=== PATIENT | female | born 1965 | race Caucasian/White ===

== ENCOUNTER 2022-12-04 10:03 | Emergency (ER) | payer OTHER, SELFPAY ==
--- NOTE | 2022-12-04 10:10 | ED.EYEPROB ---
HPI - Eye Problem General Chief complaint: Eye Problems Stated complaint: rt eye pain and irritation Time Seen by Provider: 12/04/22 10:09 Source: patient Mode of arrival: ambulatory Limitations: no limitations History of Present Illness HPI Narrative: Patient is a 57-year-old female that presents with 1 week of periorbital redness and swelling to right eye. Patient states the swelling goes up and down but the last 3 days it has been consistently swollen and red. Patient is from [place] and just passing through. Patient has tried eye drops with no relief. Reports areas tender to touch. Denies any vision changes, eye discharge or being matted shut in the mornings. Denies any fever, chills. Related Data Home Medications Medication Instructions Recorded Confirmed abemaciclib 150 mg tablet 150 mg PO DAILY 12/04/22 12/04/22 (Verzenio) anastrozole 1 mg tablet 1 mg PO DAILY 12/04/22 12/04/22 atorvastatin 40 mg tablet 40 mg PO DAILY 12/04/22 12/04/22 carvedilol 6.25 mg tablet 6.25 mg PO DAILY 12/04/22 12/04/22 gabapentin 300 mg capsule 300 mg PO HS 12/04/22 12/04/22 glyburide 5 mg tablet 5 mg PO DAILY 12/04/22 12/04/22 insulin glargine 100 unit/mL (3 20 unit subcut HS 12/04/22 12/04/22 mL) subcutaneous pen (Basaglar KwikPen U-100 Insulin) metformin 500 mg tablet 500 mg PO BID 12/04/22 12/04/22 sitagliptin phosphate 50 mg tablet 50 mg PO DAILY 12/04/22 12/04/22 (Januvia) valsartan 160 mg tablet 160 mg PO DAILY 12/04/22 12/04/22 Allergies Allergy/AdvReac Type Severity Reaction Status Date / Time No Known Allergies Allergy Verified 12/04/22 10:21 Review of Systems Review of Systems: All systems reviewed & are unremarkable except as noted in HPI and below Constitutional: Constitutional: Denies body ache(s), Denies fever(s), Denies headache(s), Denies malaise and Denies weakness Eyes: Eyes: Denies blurry vision, Denies eye discharge, Reports irritation, Denies itchy eyes, Denies loss of vision and Reports eye pain ENT: Denies otalgia, Denies headache(s), Denies nasal discharge, Denies sinus pain and Denies sore throat Cardiovascular: Cardiovascular: Denies chest pain, Denies irregular heart rhythm and Denies dyspnea Respiratory: Respiratory: Denies dyspnea Gastrointestinal: Gastrointestinal: Denies abdominal pain, Denies diarrhea, Denies nausea and Denies vomiting Musculoskeletal: Musculoskeletal: Denies back pain, Denies myalgias and Denies arthralgias Integumentary/Breasts: Skin/Breast: Denies pruritus and Denies rash Neurologic: Denies headache(s), Denies loss of vision and Denies weakness Psychiatric: Psychiatric: Reports no additional psychiatric complaints Allergic/Immunologic: Allergic/Immunologic: Reports itchy eyes PMFSH Comments At time of signature, agree with nursing past medical, surgical, social and family history. There is no relevant family history pertinent to the presenting complaint. Exam Const: General: cooperative, healthy appearing, comfortable, no acute distress and well nourished Nutritional Appearance: well nourished Orientation/consciousness: patient oriented x3 Limitations: no limitations HENMT: Head: normal to inspection, normocephalic and atraumatic Ears: external ears normal Face/Nose/Sinus: Normal external nose present, normal facial exam and face symmetric Face and sinus: normal facial exam and face symmetric Mouth: Yes lip normal Eyes: General: appearance normal, both eyes and all related structures Visual Mckoy: normal visual mckoy by confrontation Alignment and Position: alignment normal and position normal Periorbital: periorbital findings abnormal right periorbital swelling, periorbital tenderness and periorbital erythema; no ecchymosis and no crepitus Eyelids: eyelid abnormality right upper eyelid erythema and swelling Conjunctivae: conjunctivae normal Sclera: sclerae normal Pupils: Equal, round and reactive pupils present EOM: EOMs intact bilaterally Dir
[2022-12-04 10:25] VITALS: BP 136/66; PULSE 87; RESP 20; TEMP 36; O2SAT 99
== END 2022-12-04 10:39 | disposition home or self-care (01) ==
PROVIDERS: Emergency Provider Nurse Practitioner Family
DX: L03.213 Periorbital cellulitis (principal); E78.00 Pure hypercholesterolemia, unspecified; I10 Essential (primary) hypertension; Z86.16 Personal history of COVID-19; E11.9 Type 2 diabetes mellitus without complications; Z92.3 Personal history of irradiation
CPT/HCPCS: 99203; G0463